=== PATIENT | male | born 1955 ===

== ENCOUNTER 2020-01-30 23:01 | Emergency (ER) | payer OTHER ==
[~2020-01-30] VITALS: Ht 170.2 cm; Wt 90.0 kg
[2020-01-30] MEDS ORDERED: ZIPRASIDONE 20 MG INJ IM ONE ×2 (23:30→23:34)
[2020-01-30] MEDS ORDERED: LORazepam 1MG TABLET PO ONE (23:30)
[2020-01-30] MEDS ORDERED: LORazepam 1MG TABLET ONE (23:34)
[2020-01-30 23:44] LABS: BASOPHILS % (AUTO) 1 % (0-1); EOSINOPHILS # (AUTO) 0.43 x10^3/uL (0-0.4); EOSINOPHILS % (AUTO) 3 % (1-7); LYMPHOCYTES # (AUTO) 2.41 x10^3/uL (1-3.4); LYMPHOCYTES % (AUTO) 19 % (22-44); MD NO; MEAN CORPUSCULAR HEMOGLOBIN 28.9 pg (27.5-34.5); MEAN CORPUSCULAR HGB CONC 32.1 g/dL (33.2-36.2); MEAN CORPUSCULAR VOLUME 89.8 fL (81-97); MEAN PLATELET VOLUME 7.8 fL (7.4-10.4); MONOCYTES # (AUTO) 0.94 x10^3/uL (0.2-0.8); MONOCYTES % (AUTO) 7 % (2-9); NEUTROPHILS # (AUTO) 9.04 x10^3/uL (1.8-6.8); NEUTROPHILS % (AUTO) 70 % (42-75); PLATELET COUNT 472 x10^3/uL (130-400); RED BLOOD COUNT 4.54 x10^6/uL (4.38-5.82); RED CELL DISTRIBUTION WIDTH 15.6 % (9.4-14.8)
[2020-01-30] MEDS ORDERED: PLEASE ENTER HEIGHT AND WEIGHT MC SCH (23:45)
[2020-01-30 23:56] LABS: ALANINE AMINOTRANSFERASE 60 U/L (12-78); ALBUMIN 3.5 g/dL (3.4-5.0); ANION GAP 7 mmol/L (5-15); CALCIUM 8.7 mg/dL (8.5-10.1); CHLORIDE 105 mmol/L (98-107); CREATININE 1.08 mg/dL (0.7-1.3); SALICYLATE LEVEL < 1.7 mg/dL (2.8-20.0)
[2020-01-30 23:58] LABS: ALKALINE PHOSPHATASE 139 U/L (45-117); BILIRUBIN,TOTAL 0.7 mg/dL (0.2-1.0); TOTAL PROTEIN 7.9 g/dL (6.4-8.2)
--- NOTE | 2020-01-31 00:28 | NUR ---
patient changed into gown and RN locked up patients one bag of belongings. patient vss,nad. patient tolerating PO at this time
--- NOTE | 2020-01-31 00:51 | NUR ---
patient sleeping after medications given, RN placed patient on a couple liters of oxygen because patients oxxygen level went down to 90 on RA
--- NOTE | 2020-01-31 02:06 | NUR ---
Pt sleeping and resting comfortably in bed, NAD noted
--- NOTE | 2020-01-31 02:18 | NUR ---
PT PACKET SENT TO [facility].
--- NOTE | 2020-01-31 03:58 | NUR ---
Pt sleeping with NAD noted at this time, VSS,
--- NOTE | 2020-01-31 05:44 | NUR ---
Pt resting comfortably in bed, NAD noted, no requests at this time
--- NOTE | 2020-01-31 06:51 | NUR ---
Report given to Kirt JOY
--- NOTE | 2020-01-31 08:17 | NUR ---
breakfast provided. pt denies further needs at this time
--- NOTE | 2020-01-31 09:08 | NUR ---
PT MOVED TO HOSPITAL BED. NEW LINENS PROVIDED. PT DENIES FURTHER NEEDS AT THIS TIME
--- NOTE | 2020-01-31 11:05 | NUR ---
PT PROVIDED WITH WATER AND COFFEE PER REQUEST. DENIES FURTHER NEEDS AT THIS TIME
[2020-01-31] MEDS ORDERED: LORazepam 1MG TABLET ONE (12:59)
[2020-01-31] MEDS ORDERED: LORazepam 1MG TABLET PO ONE (13:00)
--- NOTE | 2020-01-31 13:08 | NUR ---
[facility] [phone]
[2020-01-31 15:38] LABS: AMPHETAMINE SCREEN, URINE Negative (Negative); BARBITURATE SCREEN, URINE Negative (Negative); BENZODIAZEPINE SCREEN, URINE Negative (Negative); CANNABINOID SCREEN, URINE Positive (Negative); COCAINE SCREEN, URINE Negative (Negative); METHADONE SCREEN, URINE Negative (Negative); OPIATE SCREEN, URINE Negative (Negative)
--- NOTE | 2020-01-31 16:12 | NUR ---
PT PROVIDED WITH JUICE AND ICE AND BIBLE PER REQUEST. DENIES FURTHER NEEDS AT THIS TIME
--- NOTE | 2020-01-31 16:49 | NUR ---
THROUGHPUT NOTE: ADMISSION PACKET FAXED TO [facility] PER [employer]ELD[employer] MACHINE OPERATOR INCLUDING LEGAL HOLD.
--- NOTE | 2020-01-31 17:27 | NUR ---
PT RESTING COMFORTABLY IN BED. NAD NOTED. SITTER MONITORING FROM [facility] FOR SAFETY
--- NOTE | 2020-01-31 17:56 | NUR ---
PT RECEIVED MEAL TRAY
[2020-01-31] MEDS ORDERED: ARIPIPRAZOLE 10 MG TABLET PO ONE (18:00)
[2020-01-31] MEDS ORDERED: ARIPIPRAZOLE 10 MG TABLET ONE (18:47)
--- NOTE | 2020-01-31 18:58 | NUR ---
Note undone in [facility] - 01/31/20 at 1901 by MILAGRO PT RECEIVED MEAL TRAY AND WATER X2, DENIES FURTHER NEEDS AT THIS TIME Addendum: 01/31/20 at 1858 by MILAGRO Amendment undone in [facility] - 01/31/20 at 1901 by MILAGRO PATIENT RESTING IN BED, OFF-GOING NURSE GAVE PATIENT ABILIFY AND UPDATED PATIENT ON PLAN OF CARE.
[2020-01-31 19:38] VITALS: BP 122/82
[2020-01-31 19:56] LABS: MICROSCOPIC INDICATED
--- NOTE | 2020-01-31 20:00 | NUR ---
SPOKE WITH BENITA LOOMIS AT [place] TO GIVE REPORT. WILL GIVE REPORT TO [facility] AT [phone] AT 2010
--- NOTE | 2020-01-31 20:06 | NUR ---
CALLED [facility], SPOKE WITH BENITA ARAGON. REPORT GIVEN. NO ADDITIONAL QUESTIONS NOTED. INFORMED OF PATIENT TRANSFER AND PATIENT CONDITION/TREATMENT IN ER.
--- NOTE | 2020-01-31 20:37 | NUR ---
REPORT GIVEN TO EMS TEAM FOR TRANSPORT.
== END 2020-01-31 20:44 ==
LOC: ED 01-31 00:46
DX: F31.13 Bipolar disorder, current episode manic without psychotic features, severe (principal); R25.9 Unspecified abnormal involuntary movements
CPT/HCPCS: 36415; 80053; 80307; 81001; 85025; 96372; 99285; J3486